=== PATIENT | female | born 1960 | race Caucasian/White ===

== ENCOUNTER 2018-04-09 12:39 | Emergency (ER) | payer OTHER ==
[~2018-04-09] VITALS: Ht 152.4 cm; Wt 71.7 kg
[2018-04-09] MEDS ORDERED: SYNTHROID50 MCG (13:28)
[2018-04-09] MEDS ORDERED: JANUMET 50-1,01 EACH (13:29)
[2018-04-09] MEDS ORDERED: BENAZEPRIL 40 MG (13:29)
[2018-04-09] MEDS ORDERED: DEXILANT60 MG (13:29)
[2018-04-09] MEDS ORDERED: GLIMEPIRIDE2 MG (13:29)
== END 2018-04-09 18:57 | disposition home or self-care (01) ==
LOC: ER 12:39
DX: M54.5 Low back pain (principal)